=== PATIENT | male | born 1945 | race Caucasian/White ===

== ENCOUNTER 2017-04-06 14:48 | Outpatient (CLI) | payer MEDICARE ==
--- NOTE | 2017-04-06 15:56 | RAD ---
PA AND LATERAL CHEST: 04/06/17 HISTORY: Hypertension. Heart size is within normal limits. There are atherosclerotic changes of the aorta. The lungs are cl ear of infiltrates. Arthritic changes of the spine. IMPRESSION: No active intrathoracic disease. POS: [facility]
[2017-04-06 16:15] LABS: ALT (SGPT) 32 U/L (8-55); AST (SGOT) 49 U/L (5-34); Albumin 3.9 g/dL (3.4-4.8); Alkaline Phosphatase 95 U/L (40-150); Anion Gap 17 mmol/L (10-20); BUN (Urea Nitrogen) 10 mg/dL (8.4-25.7); Bilirubin, Total 0.7 mg/dL (0.2-1.2); Calc. Creatinine Clearance 0 mL/min (70-130); Calcium 9.2 mg/dL (7.8-10.44); Carbon Dioxide 26 mmol/L (23-31); Cardiac Risk 1.7 (Less than 4.5); Chloride 102 mmol/L (98-107); Cholesterol 192 mg/dl (< 200 Desired); Estimated GFR-MDRD 86; Globulin 2.7 g/dL (2.4-3.5); Glucose 83 mg/dL (83-110); HDL Cholesterol 112 mg/dL (>60 Neg Risk); LDL Cholesterol, Calculated 66 mg/dL; Potassium 3.8 mmol/L (3.5-5.1); Protein, Total 6.6 g/dL (5.8-8.1); Sodium 141 mmol/L (136-145); Triglycerides 68 mg/dL (Less than 150)
[2017-04-06 18:44] LABS: Bilirubin Negative (Negative); Blood, Urine Trace (Negative); Clarity Clear (Clear); Glucose, Urine (Dipstick) Negative (Negative); Leukocyte Negative (Negative); Nitrite Positive (Negative); Protein, Urine (Dipstick) > or equal to 300 mg/dL (Neg-Trace); Specific Gravity, Urine 1.025 (1.005-1.030); pH, Urine 7.5 (5.0-9.0)
[2017-04-06 19:08] LABS: Bacteria/HPF Rare-Few HPF (None Seen); RBC/HPF None Seen HPF (0-3); Squamous Epithelial 0-3 HPF (0-3)
[2017-04-06 21:22] LABS: Band 2 % (5-11); Eosinophils 2 % (0-10); Lymphocytes 25 % (21-51); MDiff Complete? YES; Macrocytosis SLIGHT = 6-15 cells (100X) (0-5/hpf); Mean Corpuscular HGB CONC 33.3 g/dL (32.0-36.0); Mean Corpuscular Hemoglobin 36.4 pg (27.0-31.0); Mean Platelet Volume 6.9 fL (7.4-10.4); Monocytes 10 % (0-10); Neutrophil 61 % (42-75); PLT Morphology Comment Appears Adequate; Platelet Count 184 thou/uL (130-400); RBC Distribution Width 12.2 % (11.5-14.5); Red Blood Cell (RBC) Count 3.85 mill/uL (4.70-6.10); White Blood Cell (WBC) Count 5.7 thou/uL (4.8-10.8)
== END 2017-04-06 14:49 | disposition home or self-care (01) ==
LOC: NAV RAD 14:48
PROVIDERS: ATTEND Internal Medicine
DX: I73.9 Peripheral vascular disease, unspecified (principal); I12.9 Hypertensive chronic kidney disease with stage 1 through stage 4 chronic kidney disease, or unspecified chronic kidney disease; N18.2 Chronic kidney disease, stage 2 (mild)
CPT/HCPCS: 36415; 71020; 80053; 80061; 81003; 81015; 84443; 85025

== ENCOUNTER 2017-05-19 10:52 | Outpatient (CLI) | payer MEDICARE ==
[2017-05-19 12:53] LABS: Bilirubin Negative (Negative); Blood, Urine Negative (Negative); Clarity Clear (Clear); Glucose, Urine (Dipstick) Negative (Negative); Leukocyte Negative (Negative); Nitrite Positive (Negative); Protein, Urine (Dipstick) > or equal to 300 mg/dL (Neg-Trace); Specific Gravity, Urine 1.025 (1.005-1.030); pH, Urine 6.5 (5.0-9.0)
[2017-05-19 13:13] LABS: RBC/HPF 0-3 HPF (0-3); Squamous Epithelial 0-3 HPF (0-3)
[2017-05-19 13:14] LABS: Bacteria/HPF 1+ HPF (None Seen)
== END 2017-05-19 10:53 | disposition home or self-care (01) ==
LOC: NAVSJIPCSP 10:52
PROVIDERS: ATTEND Internal Medicine
DX: N39.0 Urinary tract infection, site not specified (principal)
CPT/HCPCS: 81003; 81015; 87086

== ENCOUNTER 2017-05-25 14:38 | Outpatient (CLI) | payer MEDICARE | END 2017-05-25 14:39 | disposition home or self-care (01) | LOC: NAVSJIPCSP 14:38 → NAV LABSP 14:39 | PROVIDERS: ATTEND Internal Medicine | DX: N39.0 Urinary tract infection, site not specified (principal) | CPT/HCPCS: 87086 ==

== ENCOUNTER 2018-01-18 09:06 | Outpatient (CLI) | payer MEDICARE ==
--- NOTE | 2018-01-18 10:51 | RAD ---
CHEST PA AND LATERAL: History: 72-year-old male with history of cough. Comparison: 04-06-17 FINDINGS: Heart size is within normal limits. The lungs are clear. No pneumonia, edema, or pleural effusion. IMPRESSION: No acute intrathoracic disease. POS: [facility]
== END 2018-01-18 09:07 | disposition home or self-care (01) ==
LOC: NAV RAD 09:06
PROVIDERS: ATTEND Internal Medicine
DX: R05 Cough (principal)
CPT/HCPCS: 71046

== ENCOUNTER 2018-04-04 16:34 | Outpatient (CLI) | payer MEDICARE | END 2018-04-04 16:35 | disposition home or self-care (01) | LOC: NAV ULT 16:34 | PROVIDERS: ATTEND Internal Medicine | DX: I35.1 Nonrheumatic aortic (valve) insufficiency (principal); I08.8 Other rheumatic multiple valve diseases | CPT/HCPCS: 93306 ==